=== PATIENT | male | born 1945 | race Two or more races ===

== ENCOUNTER 2023-09-03 14:02 | Emergency (ER) | payer MEDICARE, MEDICAID ==
[~2023-09-03] VITALS: Ht 154.9 cm; Wt 88.6 kg
[~2023-09-03 14:02] MED LIST: AMLO-257 PO; ASPI-556 PO; ATOR40TA71 PO; CHOL500062 PO; CLOP75TA32 PO; LISI20TA PO; PRAV20TA4 PO
[2023-09-03] MEDS ORDERED: LEVO50CA4 PO (14:16)
[2023-09-03] MEDS ORDERED: LEVO25TA9 PO (14:16)
[2023-09-03] MEDS ORDERED: METO25XL PO (14:18)
[2023-09-03] MEDS ORDERED: TAMS0.4C94 PO (14:19)
[2023-09-03 15:31] LABS: BASOPHILS % (AUTO) 0.8 % (0.0-2.0); EOSINOPHILS % (AUTO) 1.7 % (1.0-6.0); HEMATOCRIT 38.2 % (41-53); HEMOGLOBIN 12.7 g/dL (13.5-17.5); LYMPHOCYTES # (AUTO) 1.9 K/uL (1.0-4.8); LYMPHOCYTES % (AUTO) 30.2 % (22.0-44.0); MEAN CORPUSCULAR HEMOGLOBIN 30.5 pg (26.0-34.0); MEAN CORPUSCULAR HGB CONC 33.3 G/dL (31.0-37.0); MEAN CORPUSCULAR VOLUME 92 fL (80-100); MONOCYTES # (AUTO) 0.6 K/uL (0.1-1.0); MONOCYTES % (AUTO) 9.7 % (2.0-9.0); NEUTROPHILS # (AUTO) 3.7 K/uL (1.8-7.7); NEUTROPHILS % (AUTO) 57.6 % (40.0-70.0); PLATELET COUNT (AUTO) 183 K/uL (150-450); RED BLOOD CELL COUNT(AUTO) 4.17 MIL/uL (4.50-5.90); RED CELL DISTRIBUTION WIDTH 14.2 % (11.5-14.5); WHITE BLOOD COUNT (AUTO) 6.4 K/uL (4.5-11.0)
[2023-09-03 15:36] LABS: ANION GAP 12 mmol/L (8-16); CALCIUM, TOTAL 8.9 mg/dL (8.8-10.5); CARBON DIOXIDE 26 mmol/L (22-29); CHLORIDE 103 mmol/L (98-107); CREATININE 0.89 mg/dL (0.60-1.30); GLOMERULAR FILTR. RATE CALC > 60 mL/min (>60); GLUCOSE,RANDOM 126 mg/dL (70-110); POTASSIUM 3.9 mmol/L (3.5-5.1); SODIUM SERUM 141 mmol/L (136-145); UREA NITROGEN, BLOOD 13 mg/dL (7-18)
[2023-09-03 15:41] LABS: ALANINE AMINOTRANSFERASE 26 U/L (12-78); ALBUMIN 4.2 g/dL (3.4-5.0); ALKALINE PHOSPHATASE 79 U/L (46-116); ASPARTATE AMINOTRANSFERASE 23 U/L (15-37); BILIRUBIN,TOTAL 0.4 mg/dL (0.1-1.0); TOTAL PROTEIN, SERUM 7.7 g/dL (6.4-8.2)
[2023-09-03 15:50] LABS: B-TYPE NATRIURETIC PEPTIDE 54 pg/mL (0-100)
[2023-09-03 16:02] LABS: TROPONIN I-HIGH SENSITIVITY 13 ng/L (<76)
[2023-09-03] MEDS ORDERED: POTA8CAP20 PO (16:09)
[2023-09-03] MEDS ORDERED: FURO20 PO (16:09)
[2023-09-03] MEDS: FUROSEMIDE 20 MG TABLET PO ONE (16:30)
[2023-09-03 16:46] VITALS: BP 113/86; PULSE 70; RESP 16; TEMP 97.8
== END 2023-09-03 16:47 | disposition home or self-care (01) ==
LOC: EMS 14:02
DX: M79.89 Other specified soft tissue disorders (principal); R60.0 Localized edema; E78.00 Pure hypercholesterolemia, unspecified; I10 Essential (primary) hypertension
CPT/HCPCS: 80053; 83880; 84484; 85025; 93005; 93971; 99284